=== PATIENT | female | born 1970 ===

== ENCOUNTER 2017-06-17 09:48 | Day surgery (SDC) | payer BC ==
[2016-06-24 06:56] VITALS: BMI 26.5
--- NOTE | 2017-07-29 08:55 | PROCN ---
DATE: 06/17/2017 TILT-TABLE TEST REPORT INDICATION: Recurrent syncope. DESCRIPTION OF PROCEDURE: The patient was put on the table and tilted at 30 degrees for 5 minutes and 60 degrees for 15 minutes. Blood pressure and heart rate response were monitored every 3 minutes. The patient tolerated the procedure well. No symptoms were reported during the test. IMPRESSION: Appropriate response of blood pressure and heart rate during the tilt-table test. The patient was asymptomatic throughout the test. Abimael Graves MD
== END 2017-06-17 13:40 | disposition home or self-care (01) ==
LOC: C.CATHLAB 09:48
PROVIDERS: ATTEND Internal Medicine
DX: R55 Syncope and collapse (principal); R07.9 Chest pain, unspecified; I10 Essential (primary) hypertension

== ENCOUNTER 2017-06-21 09:15 | Observation (INO) | payer BC ==
[2017-06-21 09:15] VITALS: BMI 26.5
[2017-06-21] MEDS: Sodium Chloride 0.9% 1,000 ML IV ONE ×2 (09:30→09:53)
--- NOTE | 2017-06-21 10:01 | RAD ---
Chest x-ray single frontal view History: Chest pain. Comparison: None available. Findings: No focal infiltrate or effusion. Heart size within normal limits. Impression: No focal infiltrate or effusion.
[2017-06-21 10:03] LABS: BASO # 0.1 K/uL (0.0-0.2); BASO % 0.8 % (0.0-2.0); EOS # 0.3 K/uL (0.0-0.7); EOS % 4.3 % (0.0-4.0); HEMOGLOBIN 13.1 g/dL (11.0-16.0); LYMPH # 1.3 K/uL (1.0-4.3); LYMPH % 19.3 % (20.0-40.0); MEAN CORPUSCULAR HEMOGLOBIN 30.1 pg (27.0-31.0); MEAN PLATELET VOLUME 10.2 fL (7.2-11.7); MONO # 0.3 K/uL (0.0-0.8); MONO % 4.8 % (0.0-10.0); NEUT # 4.8 K/uL (1.8-7.0); NEUT % 70.8 % (50.0-75.0); RBC 4.34 Mil/uL (3.80-5.20); RED CELL DISTRIBUTION WIDTH 13.5 % (11.5-14.5); WHITE BLOOD COUNT 6.8 K/uL (4.8-10.8)
--- NOTE | 2017-06-21 10:07 | C.PDOC ---
History Of Present Illness 46 year old female, with PMHx of HTN, presents to ED for evaluation of syncopal episode. Pt had syncopal episode when IV was being inserted for stress test, BP was found to be low, 250 NS Bolus was given. Rapid response was called, pt was brought to ER for evaluation. Pt is awake, alert, oriented x3 in ER, and is asymptomatic. Denies chest pain, shortness of breath, nausea, or vomiting. Time Seen by Provider: 06/21/17 09:20 Chief Complaint (Nursing): Syncope History Per: Patient History/Exam Limitations: no limitations Onset/Duration Of Symptoms: Days Current Symptoms Are (Timing): Still Present Recent travel outside of the [place]: No Additional History Per: Patient Past Medical History Reviewed: Historical Data, Nursing Documentation, Vital Signs Vital Signs: Last Vital Signs Temp 97.8 F 06/21/17 09:25 Pulse 66 06/21/17 10:50 Resp 16 06/21/17 10:50 BP 145/84 06/21/17 10:50 Pulse Ox 100 06/21/17 11:12 - Medical History PMH: Cardia Arrhythmia (irregular heart beat), HTN, Migraine Denies: Depression - [facility] Procedures IMMOBILIZ/WOUND ATTN NEC (05/06/14) INJECT/INFUSE NEC (05/05/12) Family History: States: [place] (father at age of 65 ), CAD - Social History Hx Tobacco Use: No Hx Alcohol Use: No Hx Substance Use: No - Immunization History Hx Influenza Vaccination: No Review Of Systems Except As Marked, All Systems Reviewed And Found Negative. Constitutional: Negative for: Fever, Chills Cardiovascular: Negative for: Chest Pain, Palpitations Respiratory: Negative for: Cough, Shortness of Breath Gastrointestinal: Negative for: Nausea, Vomiting, Abdominal Pain Neurological: Positive for: Other (syncope). Negative for: Headache, Dizziness Physical Exam - Physical Exam Appears: Non-toxic, No Acute Distress Skin: Normal Color, Warm, Dry Head: Atraumatic, Normacephalic Eye(s): bilateral: Normal Inspection Oral Mucosa: Moist Neck: Supple Cardiovascular: Rhythm Regular, No Murmur Respiratory: Normal Breath Sounds, No Rales, No Rhonchi, No Wheezing Gastrointestinal/Abdominal: Soft, No Tenderness Extremity: Normal ROM, No Pedal Edema, No Deformity Neurological/Psych: Oriented x3, Normal Speech ED Course And Treatment - Laboratory Results Result Diagrams: 06/21/17 09:49 06/21/17 09:49 ECG: Interpreted By Me, Viewed By Me ECG Rhythm: Sinus Rhythm ECG Interpretation: No Acute Changes Interpretation Of ECG: Normal axis, normal intervals. No acute ST/T wave changes. Rate From EC (bpm) O2 Sat by Pulse Oximetry: 100 (RA) Pulse Ox Interpretation: Normal Medical Decision Making Medical Decision Making: Blood work, EKG, CXR ordered and reviewed. Assessment: syncope Spoke with Dr. Graves who will admit pe to tele obs for syncope. Disposition Discussed With : Abimael Graves Doctor Will See Patient In The: ED Counseled Patient/Family Regarding: Studies Performed, Diagnosis - Disposition Disposition: HOSPITALIZED Disposition Time: 11:12 Condition: FAIR Forms: [facility] (Welsh) - Clinical Impression Clinical Impression: Syncope - Scribe Statement The provider has reviewed the documentation as recorded by the Scribe Shelly Helms All medical record entries made by the Scribe were at my direction and personally dictated by me. I have reviewed the chart and agree that the record accurately reflects my personal performance of the history, physical exam, medical decision making, and the department course for this patient. I have also personally directed, reviewed, and agree with the discharge instructions and disposition.
[2017-06-21 10:15] LABS: ALB/GLOB RATIO 1.2 (1.0-2.1); CALCIUM 8.3 mg/dl (8.6-10.4); GFR AFRICAN-AMERICAN > 60; GFR NON-AFRICAN AMERICAN > 60
[2017-06-21 10:37] LABS: ALT/SGPT 15 U/L (9-52); AST/SGOT 23 U/L (14-36); BLOOD UREA NITROGEN 14 mg/dL (7-17)
[2017-06-21 12:53] LABS: HDL CHOLESTEROL 49 mg/dL (30-70)
[2017-06-21 13:04] LABS: LDL CHOLESTEROL 113 mg/dL (0-129)
--- NOTE | 2017-06-21 15:54 | CP.PCM.CON ---
History of Present Illness - History of Present Illness History of Present Illness: Mrs. Reynoso is a 46-year-old woman with a past medical history of hypertension and has been having palpitations with occasional chest pain. Yesterday, she was being prepped for a cath and an IV line was being inserted, when she suddenly lost consciousness. This has happened several times in the past. Since June 08, the patient has been having headaches that are described as one sided, over the left side of the head, around the eye, pressure like, severe , come on suddenly, several times throughout the day, and associated with nausea. She was given Fioricet and Imitrex, but these did not help. Review of Systems - Review of Systems All systems: reviewed and no additional remarkable complaints except Past Patient History - Infectious Disease Hx of Infectious Diseases: None - Tetanus Immunizations Tetanus Immunization: Up to Date - Past Social History Smoking Status: Never Smoked - CARDIAC Hx Cardia Arrhythmia: Yes (irregular heart beat) Hx Hypertension: Yes - NEUROLOGICAL Hx Migraine: Yes - MUSCULOSKELETAL/RHEUMATOLOGICAL Hx Falls: No - PSYCHIATRIC Hx Depression: No Hx Substance Use: No - SURGICAL HISTORY Hx Surgeries: Yes Hx Section: Yes (x2) Other/Comment: rotator cuff surgery - ANESTHESIA Hx Anesthesia: Yes Hx Anesthesia Reactions: No Hx Malignant Hyperthermia: No Meds Allergies/Adverse Reactions: Allergies Allergy/AdvReac Type Severity Reaction Status Date / Time No Known Allergies Allergy Verified 06/21/17 09:23 Physical Exam - Constitutional Appears: Well - Head Exam Head Exam: ATRAUMATIC, NORMAL INSPECTION, NORMOCEPHALIC - Eye Exam Eye Exam: EOMI, Normal appearance, PERRL - ENT Exam ENT Exam: Mucous Membranes Moist, Normal Exam - Neck Exam Neck exam: Positive for: Normal Inspection - Cardiovascular Exam Cardiovascular Exam: REGULAR RHYTHM, +S1, +S2 - GI/Abdominal Exam GI & Abdominal Exam: Normal Bowel Sounds, Soft. absent: Tenderness - Rectal Exam Rectal Exam: Deferred - Extremities Exam Extremities exam: Positive for: normal inspection - Neurological Exam Neurological exam: Alert, CN II-XII Intact, Normal Gait, Oriented x3, Reflexes Normal - Psychiatric Exam Psychiatric exam: Normal Affect, Normal Mood - Skin Skin Exam: Dry, Intact, Normal Color, Warm Results - Vital Signs Recent Vital Signs: Last Vital Signs Temp 98.2 F 06/21/17 14:46 Pulse 71 06/21/17 14:46 Resp 19 06/21/17 14:46 BP 137/92 H 06/21/17 14:46 Pulse Ox 97 06/21/17 14:46 - Labs Result Diagrams: 06/21/17 09:49 06/21/17 09:49 Labs: Laboratory Results - last 24 hr 06/21/17 06/21/17 06/21/17 09:30 09:49 09:49 WBC 6.8 RBC 4.34 Hgb 13.1 Hct 37.3 MCV 86.0 MCH 30.1 MCHC 35.0 RDW 13.5 Plt Count 192 MPV 10.2 Neut % (Auto) 70.8 Lymph % (Auto) 19.3 L [place] % (Auto) 4.8 Eos % (Auto) 4.3 H Baso % (Auto) 0.8 Neut # 4.8 Lymph # 1.3 [place] # 0.3 Eos # 0.3 Baso # 0.1 Sodium 133 Potassium 4.6 Chloride 101 Carbon Dioxide 23 Anion Gap 14 BUN 14 Creatinine 0.7 Est GFR ( Amer) > 60 Est GFR (Non-Af Amer) > 60 POC Glucose (mg/dL) 95 Random Glucose 97 Hemoglobin A1c Calcium 8.3 L Total Bilirubin 0.8 AST 23 ALT 15 Alkaline Phosphatase 56 Troponin I < 0.0120 Total Protein 7.4 Albumin 4.0 Globulin 3.4 Albumin/Globulin Ratio 1.2 Triglycerides Cholesterol LDL Cholesterol Direct HDL Cholesterol Vitamin B12 25-OH Vitamin D Total Urine HCG, Qual 06/21/17 06/21/17 06/21/17 11:47 11:58 12:36 WBC RBC Hgb Hct MCV MCH MCHC RDW Plt Count MPV Neut % (Auto) Lymph % (Auto) [place] % (Auto) Eos % (Auto) Baso % (Auto) Neut # Lymph # [place] # Eos # Baso # Sodium Potassium Chloride Carbon Dioxide Anion Gap BUN Creatinine Est GFR ( Amer) Est GFR (Non-Af Amer) POC Glucose (mg/dL) Random Glucose Hemoglobin A1c 5.6 Calcium Total Bilirubin AST ALT Alkaline Phosphatase Troponin I Total Protein Albumin Globulin Albumin/Globulin Ratio Triglycerides 108 Cholesterol 199 LDL Cholesterol Direct 113 HDL Cholesterol 49 Vitamin B12 406 25-OH Vitamin D Total Urine HCG, Qual Negative 06/21/17 12:36 WBC RBC Hgb Hct MCV MCH MCHC RDW Plt Count MPV Neut % (Auto) Lymph % (Auto) [place] % (Auto) Eos % (Auto) Baso % (Auto) Neut # Lymph # [place] # Eos # Baso # Sodium Potassium Chloride Carbon Dioxide Anion Gap BUN Creatinine Est GFR ( Amer) Est GFR (Non-Af Amer) POC Glucose (mg/dL) Random Glucose Hemoglobin A1c Calcium Total Bilirubin AST ALT Alkaline Phosphatase Troponin I Total Protein Albumin Globulin Albumin/Globulin Ratio Triglycerides Cholesterol LDL Cholesterol Direct HDL Cholesterol Vitamin B12 25-OH Vitamin D Total 23.8 L Urine HCG, Qual Assessment & Plan (1) Paroxysmal hemicrania Assessment and Plan: Will start Indomethacin 25 mg BID to treat the headache, and follow up with me in the outpatient neurology clinic in two weeks. Status: Acute Priority: High (2) Syncope Assessment and Plan: Likely vaso-vagal syncope. Will obtain CTA of the head/neck to rule out VBI. Status: Acute
--- NOTE | 2017-06-21 16:10 | CARD ---
APPROVED REPORT EXAM: Two-dimensional and M-mode echocardiogram with Doppler and color Doppler. INDICATION Syncope RISK FACTORS Hypertension 2D DIMENSIONS IVSd0.8 (0.7-1.1cm)LVDd4.4 (3.9-5.9cm) PWd0.9 (0.7-1.1cm)LVDs2.8 (2.5-4.0cm) FS (%) 37.7 %LVEF (%)68.0 (>50%) M-Mode DIMENSIONS Left Atrium (MM)3.34 (2.5-4.0cm)Aortic Root3.43 (2.2-3.7cm) Aortic Cusp Exc.2.26 (1.5-2.0cm) Mitral Valve MV E Uiuwmhpz67.3cm/sMV A Kpusvryc14.7cm/sE/A ratio1.0 TDI E/Lateral E'0.0E/Medial E'0.0 Tricuspid Valve TR Peak Zygcjzdp714hh/sTR Peak [id number] LEFT VENTRICLE The left ventricle is normal size. There is normal left ventricular wall thickness. The left ventricular function is normal. The left ventricular ejection fraction is within the normal range. There is normal LV segmental wall motion. The left ventricular diastolic function is normal. RIGHT VENTRICLE The right ventricle is normal size. The right ventricular systolic function is normal. ATRIA The left atrium size is normal. The right atrium size is normal. The interatrial septum is intact with no evidence for an atrial septal defect. AORTIC VALVE The aortic valve is normal in structure. No aortic regurgitation is present. MITRAL VALVE The mitral valve is normal in structure. Mitral regurgitation is trace. TRICUSPID VALVE The tricuspid valve is normal in structure. There is trace to mild tricuspid regurgitation. Right ventricular systolic pressure is estimated at less than 30 mmHg. PULMONIC VALVE The pulmonary valve is normal in structure. GREAT VESSELS The aortic root is normal in size. The IVC is normal in size and collapses >50% with inspiration. PERICARDIAL EFFUSION There is no pericardial effusion. <Conclusion> Normal bi-ventricular function. Insignificant trace of mitral regurgitation. No pericardial effusion.
[2017-06-21] MEDS ORDERED: Iodixanol 320 MG/ML 100 ML BOTTLE IV ONE (17:13)
--- NOTE | 2017-06-21 20:26 | CT ---
EXAM: CT Angiography Head With Intravenous Contrast CLINICAL HISTORY: 46 years old, female; Pain; Headache; Additional info: Syncope TECHNIQUE: Axial computed tomographic angiography images of the head with intravenous contrast using CT angiography protocol. All CT scans at this facility use one or more dose reduction techniques, viz.: automated exposure control; ma/kV adjustment per patient size (including targeted exams where dose is matched to indication; i.e. head); or iterative reconstruction technique. MIP reconstructed images were created and reviewed. Coronal and sagittal reformatted images were created and reviewed. CONTRAST: 100 mL of visipaque 320 administered intravenously. COMPARISON: No relevant prior studies available. FINDINGS: Right internal carotid artery: No acute findings. Intracranial segment is patent with no significant stenosis. No aneurysm. Right anterior cerebral artery: Unremarkable. No occlusion or significant stenosis. No aneurysm. Right middle cerebral artery: Unremarkable. No occlusion or significant stenosis. No aneurysm. Right posterior cerebral artery: Unremarkable. No occlusion or significant stenosis. No aneurysm. Right vertebral artery: Unremarkable as visualized. Left internal carotid artery: No acute findings. Intracranial segment is patent with no significant stenosis. No aneurysm. Left anterior cerebral artery: Unremarkable. No occlusion or significant stenosis. No aneurysm. Left middle cerebral artery: Unremarkable. No occlusion or significant stenosis. No aneurysm. Left posterior cerebral artery: Unremarkable. No occlusion or significant stenosis. No aneurysm. Left vertebral artery: Unremarkable as visualized. Basilar artery: Unremarkable. No occlusion or significant stenosis. No aneurysm. IMPRESSION: Normal head CTA. EXAM: CT Angiography Neck With Intravenous Contrast EXAM DATE/TIME: Exam ordered 06/21/2017 11:44 AM CLINICAL HISTORY: 46 years old, female; Pain; Headache; Additional info: Syncope TECHNIQUE: Axial computed tomographic angiography images of the neck with intravenous contrast using CT angiography protocol. All CT scans at this facility use one or more dose reduction techniques, viz.: automated exposure control; ma/kV adjustment per patient size (including targeted exams where dose is matched to indication; i.e. head); or iterative reconstruction technique. MIP reconstructed images were created and reviewed. Coronal and sagittal reformatted images were created and reviewed. CONTRAST: 100 mL of visipaque 320 administered intravenously. COMPARISON: No relevant prior studies available. FINDINGS: VASCULATURE: Right common carotid artery: Unremarkable. No significant stenosis. No dissection or occlusion. Right internal carotid artery: Unremarkable. Extracranial segment is patent with no significant stenosis. No dissection or occlusion. Right external carotid artery: Unremarkable. No occlusion. Right vertebral artery: Unremarkable. No significant stenosis. No dissection or occlusion. Left common carotid artery: Unremarkable. No significant stenosis. No dissection or occlusion. Left internal carotid artery: Unremarkable. Extracranial segment is patent with no significant stenosis. No dissection or occlusion. Left external carotid artery: Unremarkable. No occlusion. Left vertebral artery: Unremarkable. No significant stenosis. No dissection or occlusion. NECK: Bones/joints: No acute fracture. No dislocation. Soft tissues: Unremarkable as visualized. No mass. CAROTID STENOSIS REFERENCE USING NASCET CRITERIA: % ICA stenosis = (1 - narrowest ICA diameter/diameter of distal cervical ICA) x 100. Mild - <50% stenosis. Moderate - 50-69% stenosis. Severe - 70-94% stenosis. Near occlusion - 95-99% stenosis. Occluded - 100% stenosis. IMPRESSION: Normal neck CTA.
--- NOTE | 2017-06-22 06:31 | CP.PCM.CON ---
History of Present Illness - History of Present Illness History of Present Illness: Patient was seen in the ER(06/21/2017) Reason for referral: recurrent syncope; palpitations CC: recurrent syncope chest pain HPI: Mrs. Reynoso is a 46-year-old woman with a past medical history of hypertension and has been having palpitations with occasional chest pain. Yesterday, she was being prepped for a cath and an IV line was being inserted, when she suddenly lost consciousness. This has happened several times in the past. Since June 08, the patient has been having headaches that are described as one sided, over the left side of the head, around the eye, pressure like, severe, come on suddenly, several times throughout the day, and associated with nausea. She was given Fioricet and Imitrex, but these did not help. EKG - NSR TILT Table Test (06/18/2017) - Normal response to tilt table test Review of Systems - Constitutional Constitutional: absent: Frequent Falls, Weight Loss - EENT Ears: Dizziness. absent: Ear Pain, Tinnitus Nose/Mouth/Throat: absent: Nasal Congestion, Dysphagia - Cardiovascular Cardiovascular: Chest Pain, Palpitations - Respiratory Respiratory: Dyspnea - Gastrointestinal Gastrointestinal: absent: Abdominal Pain, Diarrhea, Dysphagia - Musculoskeletal Musculoskeletal: absent: Myalgias, Numbness - Neurological Neurological: Syncope, Vertigo. absent: Convulsions, Disequilibrium, Focal Weakness, Tingling Past Patient History - Infectious Disease Hx of Infectious Diseases: None - Tetanus Immunizations Tetanus Immunization: Up to Date - Past Social History Smoking Status: Never Smoked - CARDIAC Hx Cardia Arrhythmia: Yes (irregular heart beat) Hx Hypertension: Yes - NEUROLOGICAL Hx Migraine: Yes - MUSCULOSKELETAL/RHEUMATOLOGICAL Hx Falls: No - PSYCHIATRIC Hx Depression: No Hx Substance Use: No - SURGICAL HISTORY Hx Surgeries: Yes Hx Section: Yes (x2) Other/Comment: rotator cuff surgery - ANESTHESIA Hx Anesthesia: Yes Hx Anesthesia Reactions: No Hx Malignant Hyperthermia: No Meds Allergies/Adverse Reactions: Allergies Allergy/AdvReac Type Severity Reaction Status Date / Time No Known Allergies Allergy Verified 06/21/17 09:23 - Medications Medications: Current Medications Indomethacin (Indocin) 25 mg PO BID [facility] Last Admin: 06/21/17 17:54 Dose: Not Given Lisinopril (Zestril) 10 mg PO DAILY [facility] Physical Exam - Head Exam Head Exam: NORMAL INSPECTION - Eye Exam Eye Exam: absent: Scleral icterus - ENT Exam ENT Exam: Mucous Membranes Moist - Neck Exam Neck exam: Positive for: Full Rom. Negative for: Lymphadenopathy - Respiratory Exam Respiratory Exam: NORMAL BREATHING PATTERN - Cardiovascular Exam Cardiovascular Exam: REGULAR RHYTHM - GI/Abdominal Exam GI & Abdominal Exam: Soft. absent: Tenderness - Extremities Exam Extremities exam: Positive for: calf tenderness. Negative for: pedal edema - Neurological Exam Neurological exam: Alert, CN II-XII Intact, Oriented x3 Results - Vital Signs Recent Vital Signs: Last Vital Signs Temp 98 F 06/21/17 23:32 Pulse 74 06/21/17 23:40 Resp 20 06/21/17 23:32 BP 112/73 06/21/17 23:32 Pulse Ox 97 06/21/17 23:32 - Labs Result Diagrams: 06/21/17 09:49 06/21/17 09:49 Labs: Laboratory Results - last 24 hr 06/21/17 06/21/17 06/21/17 09:30 09:49 09:49 WBC 6.8 RBC 4.34 Hgb 13.1 Hct 37.3 MCV 86.0 MCH 30.1 MCHC 35.0 RDW 13.5 Plt Count 192 MPV 10.2 Neut % (Auto) 70.8 Lymph % (Auto) 19.3 L [place] % (Auto) 4.8 Eos % (Auto) 4.3 H Baso % (Auto) 0.8 Neut # 4.8 Lymph # 1.3 [place] # 0.3 Eos # 0.3 Baso # 0.1 Sodium 133 Potassium 4.6 Chloride 101 Carbon Dioxide 23 Anion Gap 14 BUN 14 Creatinine 0.7 Est GFR ( Amer) > 60 Est GFR (Non-Af Amer) > 60 POC Glucose (mg/dL) 95 Random Glucose 97 Hemoglobin A1c Calcium 8.3 L Total Bilirubin 0.8 AST 23 ALT 15 Alkaline Phosphatase 56 Troponin I < 0.0120 Total Protein 7.4 Albumin 4.0 Globulin 3.4 Albumin/Globulin Ratio 1.2 Triglycerides Cholesterol LDL Cholesterol Direct HDL Cholesterol Vitamin B12 25-OH Vitamin D Total Urine HCG, Qual 06/21/17 06/21/17 06/21/17 11:47 11:58 12:36 WBC RBC Hgb Hct MCV MCH MCHC RDW Plt Count MPV Neut % (Auto) Lymph % (Auto) [place] % (Auto) Eos % (Auto) Baso % (Auto) Neut # Lymph # [place] # Eos # Baso # Sodium Potassium Chloride Carbon Dioxide Anion Gap BUN Creatinine Est GFR ( Amer) Est GFR (Non-Af Amer) POC Glucose (mg/dL) Random Glucose Hemoglobin A1c 5.6 Calcium Total Bilirubin AST ALT Alkaline Phosphatase Troponin I Total Protein Albumin Globulin Albumin/Globulin Ratio Triglycerides 108 Cholesterol 199 LDL Cholesterol Direct 113 HDL Cholesterol 49 Vitamin B12 406 25-OH Vitamin D Total Urine HCG, Qual Negative 06/21/17 12:36 WBC RBC Hgb Hct MCV MCH MCHC RDW Plt Count MPV Neut % (Auto) Lymph % (Auto) [place] % (Auto) Eos % (Auto) Baso % (Auto) Neut # Lymph # [place] # Eos # Baso # Sodium Potassium Chloride Carbon Dioxide Anion Gap BUN Creatinine Est GFR ( Amer) Est GFR (Non-Af Amer) POC Glucose (mg/dL) Random Glucose Hemoglobin A1c Calcium Total Bilirubin AST ALT Alkaline Phosphatase Troponin I Total Protein Albumin Globulin Albumin/Globulin Ratio Triglycerides Cholesterol LDL Cholesterol Direct HDL Cholesterol Vitamin B12 25-OH Vitamin D Total 23.8 L Urine HCG, Qual Assessment & Plan - Assessment and Plan (Free Text) Assessment: Recurrent syncope Chest pain w/ palpitations Migraine Plan: Neuro work up Lexiscan ECHO Consider loop implant - Date & Time Date: 06/21/17 Time: 10:40
[2017-06-22] MEDS ORDERED: Aminophylline 25 mg/ml Inj ONE (07:41)
[2017-06-22] MEDS: Enoxaparin 40 mg Syringe SC SCH (09:54)
--- NOTE | 2017-06-22 10:34 | CP.PCM.HP ---
History of Present Illness - History of Present Illness History of Present Illness: 46-year-old woman with a past medical history of hypertension and has been having palpitations with occasional chest pain. Yesterday, she was being prepped for a cath and an IV line was being inserted, when she suddenly lost consciousness. Present on Admission - Present on Admission Any Indicators Present on Admission: No History of DVT/PE: No History of Uncontrolled Diabetes: No Urinary Catheter: No Decubitus Ulcer Present: No History Surgical Site Infection Following: None Review of Systems - Constitutional Constitutional: As Per HPI - EENT Eyes: absent: As Per HPI, Blind Spots, Blurred Vision, Change in Vision, Decreased Night Vision, Diplopia, Discharge, Dry Eye, Exophthalmos, Floaters, Irritation, Itchy Eyes, Loss of Peripheral Vision, Pain, Photophobia, Requires Corrective Lenses, Sees Flashes, Spots in Vision, Tunnel Vision, Other Visual Disturbances, Loss of Vision, Other Ears: absent: As Per HPI, Decreased Hearing, Ear Discharge, Ear Pain, Tinnitus, Abnormal Hearing, Disequilibrium, Dizziness, Other Nose/Mouth/Throat: absent: As Per HPI, Epistaxis, Nasal Congestion, Nasal Discharge, Nasal Obstruction, Nasal Trauma, Nose Pain, Post Nasal Drip, Sinus Pain, Sinus Pressure, Bleeding Gums, Change in Voice, Dental Pain, Dry Mouth, Dysphagia, Halitosis, Hoarsness, Lip Swelling, Mouth Lesions, Mouth Pain, Odynophagia, Sore Throat, Throat Swelling, Tongue Swelling, Facial Pain, Neck Pain, Neck Mass, Other - Breasts Breasts: absent: As Per HPI, Change in Shape, Mass, Pain, Nipple Discharge, Nipple Inversion, Skin Changes, Swelling, Other - Cardiovascular Cardiovascular: As Per HPI - Gastrointestinal Gastrointestinal: absent: As Per HPI, Abdominal Pain, Belching, Bloating, Change in Bowel Habits, Change in Stool Character, Coffee Ground Emesis, Constipation, Cramping, Diarrhea, Dyspepsia, Dysphagia, Early Satiety, Excessive Flatus, Fecal Incontinence, Heartburn, Hematemesis, Hematochezia, Loose Stools, Melena, Nausea, Odynophagia, Temesmus, Vomiting, Other - Genitourinary Genitourinary: absent: As Per HPI, Change in Urinary Stream, Difficulty Urinating, Dysuria, Flank Pain, Hematuria, Pyuria, Nocturia, Urinary Incontinence, Urinary Frequency, Urinary Hesitance, Urinary Urgency, Voiding Freq/Small Amts, Freq UTI, Hx Renal/Bladder Calculi, Hx /Renal Surgery, Bladder Distension, Other - Reproductive: Female Reproductive:Female: absent: As Per HPI, Amenorrhea, Amenorrhea/ Control, Currently Menstual, Cycle <21 Days, Cycle >35 Days, Cycle Variable, Menses 1-7 Days, Menses >/= 8 Days, Menses Variable, Cycle > 4 Weeks Between, No Menses for 6 Months, Heavy Menses, Light Menses, Normal Menses, Spotting Between Cycles , S/P Hysterectomy, Menopausal, Post Menopausal, Premenarche, Abnormal Vaginal Bleeding, Dysmenorrhea, Dyspareunia, Genital Lesions, Genital Pruritis, Pelvic Pain, Prolapse Symptoms, Sexual Dysfunction, Vaginal Discharge, Vaginal Dryness , Vaginal Odor, Vaginal Pruritis, Other - Menstruation Menstruation: absent: As Per HPI, Amenorrhea, Amenorrhea/ Control, Currently Menstual, Cycle <21 Days, Cycle >35 Days, Cycle Variable, Menses 1-7 Days, Menses >/= 8 Days, Menses Variable, Cycle > 4 Weeks Between, No Menses for 6 Months, Heavy Menses, Light Menses, Normal Menses, Spotting Between Cycles , S/P Hysterectomy, Menopausal, Post Menopausal, Premenarche, Abnormal Vaginal Bleeding, Dysmenorrhea, Other - Musculoskeletal Musculoskeletal: absent: As Per HPI, Abnormal Gait, Arthralgias, Atrophy, Back Pain, Deformity, Joint Swelling, Limited Range of Motion, Loss of Height, Muscle Cramps, Muscle Weakness, Myalgias, Neck Pain, Numbness, Radiating Pain into Limb, Stiffness, Tingling, Other - Integumentary Integumentary: absent: As Per HPI, Acne, Alopecia, Bleeding Lesions, Change in Hair, Change in Nails, Change in Pigmentation, Changing Lesions, Dry Skin, Erythema, Furuncle, Hirsutism, Lesions, New Lesions, Non-Healing Lesions, Photosensitivity, Pruritus, Rash, Skin Pain, Skin Ulcer, Sores, Striae, Swelling , Unusual Bruising, Wounds, Jaundice, Other - Neurological Neurological: As Per HPI - Psychiatric Psychiatric: absent: As Per HPI, Abnormal Sleep Pattern, Anhedonia, Anxiety, Auditory Hallucinations, Behavioral Changes, Change in Appetite, Change in Libido, Confusion, Depression, Difficulty Concentrating, Hallucinations, Homicidal Ideation, Hopelessness, Irritability, Memory Loss, Mood Swings, Panic Attacks, Paranoia, Suicidal Ideation, Visual Hallucinations, Tactile Hallucinations, Other - Endocrine Endocrine: absent: As Per HPI, Change in Body Appearance, Change in Libido, Cold Intolorance, Deepening of Voice, Excessive Sweating, Fatigue, Flushing, Heat Intolorance, Increase in Ring/Shoe/Hat Size, Palpitations, Polydipsia, Polyphagia, Polyuria, Other - Hematologic/Lymphatic Hematologic: absent: As Per HPI, Easy Bleeding, Easy Bruising, Lymphadenopathy, Other Past Patient History - Infectious Disease Hx of Infectious Diseases: None - Tetanus Immunizations Tetanus Immunization: Up to Date - Past Social History Smoking Status: Never Smoked - CARDIAC Hx Cardia Arrhythmia: Yes (irregular heart beat) Hx Hypertension: Yes - NEUROLOGICAL Hx Migraine: Yes - MUSCULOSKELETAL/RHEUMATOLOGICAL Hx Falls: No - PSYCHIATRIC Hx Depression: No Hx Substance Use: No - SURGICAL HISTORY Hx Surgeries: Yes Hx Section: Yes (x2) Other/Comment: rotator cuff surgery - ANESTHESIA Hx Anesthesia: Yes Hx Anesthesia Reactions: No Hx Malignant Hyperthermia: No Meds Allergies/Adverse Reactions: Allergies Allergy/AdvReac Type Severity Reaction Status Date / Time No Known Allergies Allergy Verified 06/21/17 09:23 Physical Exam - Constitutional Appears: Non-toxic, Chronically Ill - Head Exam Head Exam: NORMOCEPHALIC - Eye Exam Eye Exam: PERRL - ENT Exam ENT Exam: Mucous Membranes Dry - Neck Exam Neck exam: Negative for: Lymphadenopathy - Respiratory Exam Respiratory Exam: Decreased Breath Sounds - Cardiovascular Exam Cardiovascular Exam: REGULAR RHYTHM - GI/Abdominal Exam GI & Abdominal Exam: Diminished Bowel Sounds, Soft. absent: Tenderness - Rectal Exam Rectal Exam: Deferred - Exam Exam: NORMAL INSPECTION - Extremities Exam Extremities exam: Negative for: pedal edema - Back Exam Back exam: absent: CVA tenderness (L), CVA tenderness (R) - Neurological Exam Neurological exam: Alert, CN II-XII Intact, Oriented x3, Reflexes Normal - Psychiatric Exam Psychiatric exam: Normal Mood - Skin Skin Exam: Dry Results - Vital Signs Recent Vital Signs: Last Vital Signs Temp 97.8 F 06/22/17 09:28 Pulse 76 06/22/17 09:53 Resp 20 06/22/17 09:28 BP 145/92 H 06/22/17 09:53 Pulse Ox 98 06/22/17 09:28 - Labs Result Diagrams: 06/21/17 09:49 06/21/17 09:49 Labs: Laboratory Results - last 24 hr 06/21/17 06/21/17 06/21/17 09:49 11:47 11:58 Sodium 133 Potassium 4.6 Chloride 101 Carbon Dioxide 23 Anion Gap 14 BUN 14 Hemoglobin A1c 5.6 AST 23 ALT 15 Alkaline Phosphatase 56 Triglycerides Cholesterol LDL Cholesterol Direct HDL Cholesterol Vitamin B12 25-OH Vitamin D Total Urine HCG, Qual Negative 06/21/17 06/21/17 12:36 12:36 Sodium Potassium Chloride Carbon Dioxide Anion Gap BUN Hemoglobin A1c AST ALT Alkaline Phosphatase Triglycerides 108 Cholesterol 199 LDL Cholesterol Direct 113 HDL Cholesterol 49 Vitamin B12 406 25-OH Vitamin D Total 23.8 L Urine HCG, Qual Assessment & Plan (1) Paroxysmal hemicrania Status: Acute Priority: High (2) Syncope Status: Acute Decision To Admit - Admit Certification Admit to Inpatient:: admit for evaluation and treatment of potential life threatening illness - InPatient: Physician Admission Certification:: patient requires in patient evaluation and treatment - . Bed Request Type: Telemetry
[2017-06-22 12:39] LABS: BASO # 0.1 K/uL (0.0-0.2); BASO % 0.9 % (0.0-2.0); EOS # 0.3 K/uL (0.0-0.7); EOS % 3.2 % (0.0-4.0); HEMOGLOBIN 13.3 g/dL (11.0-16.0); LYMPH # 2.1 K/uL (1.0-4.3); LYMPH % 21.5 % (20.0-40.0); MEAN CELL VOLUME 86.2 fL (81.0-99.0); MEAN CORPUSCULAR HEMOGLOBIN 28.9 pg (27.0-31.0); MEAN CORPUSCULAR HGB CONC 33.5 g/dL (33.0-37.0); MEAN PLATELET VOLUME 10.8 fL (7.2-11.7); MONO # 0.5 K/uL (0.0-0.8); MONO % 5.6 % (0.0-10.0); NEUT # 6.8 K/uL (1.8-7.0); NEUT % 68.8 % (50.0-75.0); NRBC % 0.1 % (0.0-2.0); RBC 4.6 Mil/uL (3.80-5.20); RED CELL DISTRIBUTION WIDTH 13.5 % (11.5-14.5); WHITE BLOOD COUNT 9.8 K/uL (4.8-10.8)
[2017-06-22 13:20] LABS: ALB/GLOB RATIO 1.2 (1.0-2.1); ALT/SGPT 17 U/L (9-52); AST/SGOT 17 U/L (14-36); BLOOD UREA NITROGEN 14 mg/dL (7-17); CALCIUM 8.6 mg/dl (8.6-10.4); GFR AFRICAN-AMERICAN > 60; GFR NON-AFRICAN AMERICAN > 60; MAGNESIUM 1.8 mg/dL (1.6-2.3)
[2017-06-22 20:11] LABS: CK-MB < 0.22 ng/mL (0.0-3.38)
[2017-06-22 20:41] LABS: ALB/GLOB RATIO 1.2 (1.0-2.1); ALBUMIN 3.8 g/dL (3.5-5.0); ALT/SGPT 16 U/L (9-52); AST/SGOT 39 U/L (14-36); BLOOD UREA NITROGEN 14 mg/dL (7-17); CALCIUM 8.1 mg/dl (8.6-10.4); GFR AFRICAN-AMERICAN > 60; GFR NON-AFRICAN AMERICAN > 60
[2017-06-22] MEDS ORDERED: Potassium Chloride 10 mEq ER Tab PO STA (21:40)
--- NOTE | 2017-06-23 00:10 | CARD ---
APPROVED REPORT EKG Measurement Heart [id number] [id number] <Conclusion> Normal sinus rhythm Normal ECG
--- NOTE | 2017-06-23 06:17 | CARD ---
APPROVED REPORT Protocol: LEXISCAN Test Type: LEXISCAN STRESS Test Indications: CP DIZZINESS HTN Target HR: 174 bpm Resting ECG: normal Resting Heart Rate: 69 bpm Resting Blood Pressure: 140/80mmHg submaximum (85%): 148 bpm TEST SUMMARY PREINFSNHYPERV.01:[id number]/80.0. INFUSIONDOSE 100:300.00.01.067/.0. [id number]/80.0. PROCEDURE Pharmacologic stress testing was performed using 0.4mg per 5ml of regadenoson given intravenously over 7-10 seconds. Reversal agent aminophyline 125 mg, given intravenously for Headache. There SYNCOPE low-level exercise performed along with the infusion POST EXERCISE Reason for Termination: Protocol Completed Target HR: No Max HR: 67 bpm 57% of Maximum Predicted HR: 174 bpm Exercise duration: 00:30 min:sec, 0 Stage Exercise capacity: 1.0METs Max Blood Pressure: 140/80mmHg Blood Pressure response to exercise: normal resting BP - appropriate response Heart Rate response to exercise: appropriate Chest Pain: No, none Angina index: 0 Arrhythmia: No, none ST Change: No, none Deviation: 0 mm INTERPRETATION Stress EKG Conclusion: NEGATIVE LEXISCAN STRESS TEST NORMAL BP RESPONSE TO LEXISCAN NUCLEAR STUDIES TO BE READ SEPARATELY EXAM: Myocardial Perfusion STRESS/REST Imaging Protocol The imaging protocol used to acquire images was Stress Tc-99m/rest Tc-99m 1 day Stress Spect myocardial perfusion imaging was performed in supine position 40 minutes following the injection of 12.9 mCi of Tc-99 Myoview. Gated Rest Spect was performed 41 minutes after intravenous 32.9 mCi Tc-99 Myoview injection. The images were gated to evaluate regional wall motion and calculate ventricular ejection fraction.Images were reconstructed using backfilter projection method in short horizontal and verticle long axis. Spect slices were generated. RESTING DATA EDV77.45csVF9.10L/min ESV23.00mlMyocardial Qqzl415.00g Av. Heart Rate76.00bpm EF70.00% STRESS DATA EDV85.29skUD7.90L/min ESV30.00mlMyocardial Awys595.00g EF65.00% Regional WT score at stress:0.00 Regional WM score at stress:0.00 Summed WT score at stress:1.00 Av. Heart Rate72.00bpmSummed WM score at stress:4.00 LV Perf. Quant 17 Seg. SSS0.00 17 Seg. SRS0.00 17 Seg. SDS0.00 Stress Defect Extent (% LAD)0.00Rest Defect Extent (% LAD)0.00Rev. Defect Extent (% LAD)0.00 Stress Defect Extent (% LCX)0.00Rest Defect Extent (% LCX)0.00Rev. Defect Extent (% LCX)0.00 Stress Defect Extent (% RCA)0.00Rest Defect Extent (% RCA)0.00Rev. Defect Extent (% RCA)0.00 Stress Defect Extent (% VITALIY)0.00Rest Defect Extent (% VITALIY)0.00Rev. Defect Extent (% VITALIY)0.00 IMPRESSION Normal Myocardial Perfusion exercise stress study Left Ventricle LV Size/Shape: The left ventricle is normal size. LV Function:Left ventricle systolic function is normal. The Ejection Fraction is 65-70%. Regional Wall Motion:There is normal left ventricular wall motion. Metabolism/Perfusion Defects: There is no scan evidence of reversible ischemia noted. Conclusion 1. There is no scan evidence of reversible ischemia noted. 2. Left ventricle systolic function is normal. 3. The Ejection Fraction is 65-70%.
[2017-06-23] MEDS ORDERED: Lidocaine 2% Inj (20ml) ONE (07:14)
[2017-06-23 07:32] LABS: BASO # 0.1 K/uL (0.0-0.2); BASO % 0.8 % (0.0-2.0); EOS # 0.3 K/uL (0.0-0.7); EOS % 3.3 % (0.0-4.0); HEMOGLOBIN 13.1 g/dL (11.0-16.0); MEAN CORPUSCULAR HEMOGLOBIN 29.8 pg (27.0-31.0); MEAN CORPUSCULAR HGB CONC 34.6 g/dL (33.0-37.0); MEAN PLATELET VOLUME 10.3 fL (7.2-11.7); MONO # 0.5 K/uL (0.0-0.8); MONO % 5.4 % (0.0-10.0); NEUT # 5.6 K/uL (1.8-7.0); NEUT % 66.5 % (50.0-75.0); NRBC % 0.1 % (0.0-2.0); RBC 4.41 Mil/uL (3.80-5.20); RED CELL DISTRIBUTION WIDTH 13.6 % (11.5-14.5); WHITE BLOOD COUNT 8.5 K/uL (4.8-10.8)
[2017-06-23] MEDS ORDERED: ceFAZolin 1 gm FROZEN Premix 1 GM/50 ML ML IVPB ONE (07:53)
[2017-06-23 08:12] LABS: ALB/GLOB RATIO 1.2 (1.0-2.1); ALBUMIN 3.9 g/dL (3.5-5.0); ALT/SGPT 17 U/L (9-52); AST/SGOT 14 U/L (14-36); BLOOD UREA NITROGEN 16 mg/dL (7-17); CALCIUM 8.4 mg/dl (8.6-10.4); GFR AFRICAN-AMERICAN > 60; GFR NON-AFRICAN AMERICAN > 60; MAGNESIUM 1.8 mg/dL (1.6-2.3)
--- NOTE | 2017-06-23 08:18 | CP.PCM.PN ---
Subjective - Date & Time of Evaluation Date of Evaluation: 06/23/17 Time of Evaluation: 08:14 - Subjective Subjective: PROCEDURE NOTE Proc: Loop recorder implant Indic: Recurrent syncope w/ frequent palpitations Anesthesia: Local Under routine aseptic technique, loop recorder was implanted in the 4th ICS 2cm left of parasternal area. Pt tolerated procedure well. No complications. Ancef 1gm was given before the procedure. PARAMETER R wave 1.25mV Abimael Graves MD Objective - Vital Signs/Intake and Output Vital Signs (last 24 hours): Temp Pulse Resp BP Pulse Ox 98.3 F 78 20 118/79 97 06/22/17 23:20 06/22/17 23:40 06/22/17 23:20 06/22/17 23:20 06/22/17 23:20 - Medications Medications: Current Medications Enoxaparin Sodium (Lovenox) 40 mg SC DAILY [facility] Last Admin: 06/22/17 09:54 Dose: 40 mg Indomethacin (Indocin) 25 mg PO BID [facility] Last Admin: 06/22/17 16:59 Dose: Not Given Lisinopril (Zestril) 10 mg PO DAILY [facility] Last Admin: 06/22/17 09:54 Dose: 10 mg Nitroglycerin (Nitrostat Sl Tab) 0.4 mg SL Q5M PRN PRN Reason: chest pain Last Admin: 06/22/17 19:40 Dose: 0.4 mg - Labs Labs: 06/23/17 07:12 06/23/17 07:12
--- NOTE | 2017-06-23 08:22 | CP.PCM.PN ---
Subjective - Date & Time of Evaluation Date of Evaluation: 06/22/17 Time of Evaluation: 08:00 - Subjective Subjective: Pt w/ recurrent palpitations and chest pain. Occasional syncope Objective - Vital Signs/Intake and Output Vital Signs (last 24 hours): Temp Pulse Resp BP Pulse Ox 98.3 F 78 20 118/79 97 06/22/17 23:20 06/22/17 23:40 06/22/17 23:20 06/22/17 23:20 06/22/17 23:20 - Medications Medications: Current Medications Enoxaparin Sodium (Lovenox) 40 mg SC DAILY [facility] Last Admin: 06/22/17 09:54 Dose: 40 mg Indomethacin (Indocin) 25 mg PO BID [facility] Last Admin: 06/22/17 16:59 Dose: Not Given Lisinopril (Zestril) 10 mg PO DAILY [facility] Last Admin: 06/22/17 09:54 Dose: 10 mg Nitroglycerin (Nitrostat Sl Tab) 0.4 mg SL Q5M PRN PRN Reason: chest pain Last Admin: 06/22/17 19:40 Dose: 0.4 mg - Labs Labs: 06/23/17 07:12 06/23/17 07:12 - Constitutional Appears: Non-toxic - Head Exam Head Exam: NORMAL INSPECTION - Eye Exam Eye Exam: absent: Scleral icterus - ENT Exam ENT Exam: Mucous Membranes Moist - Neck Exam Neck Exam: Full ROM - Respiratory Exam Respiratory Exam: NORMAL BREATHING PATTERN - Cardiovascular Exam Cardiovascular Exam: REGULAR RHYTHM - GI/Abdominal Exam GI & Abdominal Exam: Soft. absent: Tenderness - Extremities Exam Extremities Exam: Calf Tenderness. absent: Pedal Edema - Neurological Exam Neurological Exam: Alert, Awake, Oriented x3 Assessment and Plan - Assessment and Plan (Free Text) Assessment: Recurrent syncope Palpitations - r/o Arrhythmias Migraine Plan: Lexiscan stress test
[2017-06-23] MEDS: Enoxaparin 40 mg Syringe SC SCH (10:22)
--- NOTE | 2017-06-23 12:53 | CP.PCM.PN ---
Subjective - Date & Time of Evaluation Date of Evaluation: 06/23/17 Time of Evaluation: 12:50 - Subjective Subjective: Ms. Reynoso was seen and examined at the bedside. She is alert, oriented in all spheres. She denies any headache, very mild dizziness (s/p loop recorder placement). She has a left anterior chest wall dressing, dry and intact.She denies any blurred vision, numbness, nausea, or vomiting. She further states that she just received xanax few minutes ago which she is feeling the relief. CTA of the head and neck showed unremarkable result. There was no untoward events overnight. Objective - Vital Signs/Intake and Output Vital Signs (last 24 hours): Temp Pulse Resp BP Pulse Ox 98.1 F 72 18 135/91 H 96 06/23/17 10:00 06/23/17 10:00 06/23/17 10:00 06/23/17 10:00 06/23/17 10:00 - Medications Medications: Current Medications Enoxaparin Sodium (Lovenox) 40 mg SC DAILY [facility] Last Admin: 06/23/17 10:22 Dose: 40 mg Indomethacin (Indocin) 25 mg PO BID [facility] Last Admin: 06/23/17 10:22 Dose: Not Given Lisinopril (Zestril) 10 mg PO DAILY [facility] Last Admin: 06/23/17 10:21 Dose: 10 mg Nitroglycerin (Nitrostat Sl Tab) 0.4 mg SL Q5M PRN PRN Reason: chest pain Last Admin: 06/22/17 19:40 Dose: 0.4 mg - Labs Labs: 06/23/17 07:12 06/23/17 07:12 - Constitutional Appears: No Acute Distress - Head Exam Head Exam: NORMAL INSPECTION - Neurological Exam Neurological Exam: Alert, Awake, CN II-XII Intact, Oriented x3 Neuro motor strength exam: Left Upper Extremity: 5, Right Upper Extremity: 5, Left Lower Extremity: 5, Right Lower Extremity: 5 Additional comments: Neurological unchanged from previous examination. Assessment and Plan (1) Syncope Assessment & Plan: Case discussed with Dr. Chavarria, continue all current medical regimen. Recommend for patient to see primary physician for her anxiety. Status: Acute
--- NOTE | 2017-06-23 14:48 | CP.PCM.PN ---
Subjective - Date & Time of Evaluation Date of Evaluation: 06/23/17 Time of Evaluation: 10:00 - Subjective Subjective: alert, oriented in all spheres. She denies any headache, very mild dizziness (s/ p loop recorder placement). She has a left anterior chest wall dressing, dry and intact.She denies any blurred vision, numbness, nausea, or vomiting. Objective - Vital Signs/Intake and Output Vital Signs (last 24 hours): Temp Pulse Resp BP Pulse Ox 98.1 F 72 18 135/91 H 96 06/23/17 10:00 06/23/17 10:00 06/23/17 10:00 06/23/17 10:00 06/23/17 10:00 - Medications Medications: Current Medications Enoxaparin Sodium (Lovenox) 40 mg SC DAILY [facility] Last Admin: 06/23/17 10:22 Dose: 40 mg Indomethacin (Indocin) 25 mg PO BID [facility] Last Admin: 06/23/17 10:22 Dose: Not Given Lisinopril (Zestril) 10 mg PO DAILY [facility] Last Admin: 06/23/17 10:21 Dose: 10 mg Nitroglycerin (Nitrostat Sl Tab) 0.4 mg SL Q5M PRN PRN Reason: chest pain Last Admin: 06/22/17 19:40 Dose: 0.4 mg - Labs Labs: 06/23/17 07:12 06/23/17 07:12 - Constitutional Appears: Non-toxic, Chronically Ill - Head Exam Head Exam: NORMOCEPHALIC - Eye Exam Eye Exam: PERRL - ENT Exam ENT Exam: Mucous Membranes Dry - Neck Exam Neck Exam: absent: Lymphadenopathy - Respiratory Exam Respiratory Exam: Decreased Breath Sounds, Clear to Ausculation Bilateral - Cardiovascular Exam Cardiovascular Exam: REGULAR RHYTHM - GI/Abdominal Exam GI & Abdominal Exam: Distended, Soft - Rectal Exam Rectal Exam: Deferred - Exam Exam: NORMAL INSPECTION - Extremities Exam Extremities Exam: absent: Pedal Edema - Back Exam Back Exam: absent: CVA tenderness (L), CVA tenderness (R) - Neurological Exam Neurological Exam: Alert, Awake, Oriented x3 - Psychiatric Exam Psychiatric exam: Normal Mood - Skin Skin Exam: Dry Assessment and Plan (1) Paroxysmal hemicrania Status: Acute (2) Syncope Status: Acute - Assessment and Plan (Free Text) Assessment: s/p loop recorder placement for recurrent syncope will be followed as out pt by dr rojas
--- NOTE | 2017-06-23 16:12 | CP.PCM.PN ---
Subjective - Date & Time of Evaluation Date of Evaluation: 06/23/17 Time of Evaluation: 16:11 - Subjective Subjective: DISCUSSED D/C PLAN WITH DR. LEWIS. PT HAS BEEN CLEARED BY DR. ANDRES, HOWEVER, PT WAS TOLD BY "SOMEONE" THAT SHE WOULD BE D/C TOMORROW. HAD LOOP RECORDER PLACED WITHOUT ANY PROBLEMS; TOLERATED WELL. OK PER DR. LEWIS TO D/C HOME IN THE MORNING. PT TO F/U WITH DR ANDRES IN THE OFFICE WITHIN 5-7 DAYS. NO FURTHER ORDERS. Objective - Vital Signs/Intake and Output Vital Signs (last 24 hours): Temp Pulse Resp BP Pulse Ox 98.1 F 72 20 122/82 96 06/23/17 10:00 06/23/17 15:59 06/23/17 15:59 06/23/17 15:59 06/23/17 15:59 - Medications Medications: Current Medications Enoxaparin Sodium (Lovenox) 40 mg SC DAILY [facility] Last Admin: 06/23/17 10:22 Dose: 40 mg Indomethacin (Indocin) 25 mg PO BID [facility] Last Admin: 06/23/17 10:22 Dose: Not Given Lisinopril (Zestril) 10 mg PO DAILY [facility] Last Admin: 06/23/17 10:21 Dose: 10 mg Nitroglycerin (Nitrostat Sl Tab) 0.4 mg SL Q5M PRN PRN Reason: chest pain Last Admin: 06/22/17 19:40 Dose: 0.4 mg - Labs Labs: 06/23/17 07:12 06/23/17 07:12
[2017-06-24 01:24] VITALS: O2SAT 95
[2017-06-24 08:48] VITALS: BP 123/85; PULSE 68; RESP 20; TEMP 98
--- NOTE | 2017-06-24 10:35 | CARD ---
APPROVED REPORT EKG Measurement Heart [id number] MD [id number] <Conclusion> Normal sinus rhythm ST & T wave abnormality, consider anterior ischemia Abnormal ECG
== END 2017-06-24 11:42 | disposition home or self-care (01) ==
LOC: C.ER 09:15 → C.9E 11:30 → C.5S 13:40
PROVIDERS: ADMIT Internal Medicine; ATTEND Internal Medicine
DX: R55 Syncope and collapse (principal); G43.909 Migraine, unspecified, not intractable, without status migrainosus; G44.039 Episodic paroxysmal hemicrania, not intractable; I10 Essential (primary) hypertension
CPT/HCPCS: 36415; 70496; 70498; 71045; 78452; 80053; 80061; 82306; 82607; 82948; 83036; 83735; 84100; 84484; 84703; 85025; 93005; 93017; 93306; 99285; A9502; G0378; J0280; J0690; J1650; J2060; J2785; Q9967

== ENCOUNTER 2018-05-02 22:21 | Emergency (ER) | payer BC ==
[2018-05-02 22:22] VITALS: BMI 26.5
[2018-05-02] MEDS ORDERED: Sodium Chloride 0.9% 1,000 ML IV ONE (23:57)
--- NOTE | 2018-05-03 00:10 | C.PDOC ---
History Of Present Illness 47 year old female with PMHx of HTN presents to the ED c/o cough, abdominal pain, nausea, vomit, diarrhea, congestion, chills, body aches for the past 4 days. Patient reports symptoms started after Thanksgiving, patient's 22 month ol d granddaughter was sick with cough and congestion. Patient was her PMD Dr. Graves today who staretd her on levaquin but patient reports symptoms did not improve. Patient denies rash, dyauria, hematuria, back pain, headache, dizziness, recent travel. <Kimberly Rubio - Last Filed: 05/03/18 00:56> case endoresd penidng ct. ct neg for acute pathology. paged pmd to discuss. af ter paging, pt refueses to wait in er for callback. states will return with woresning. states she feels better. asking specifically for dc. advise close outpt fu and reutrn precautions <Eric Marrero - Last Filed: 05/03/18 05:25> History Per: Patient History/Exam Limitations: no limitations Onset/Duration Of Symptoms: Days (4) Current Symptoms Are (Timing): Still Present Location Of Pain/Discomfort: Diffuse Quality Of Discomfort: "Pain" Associated Symptoms: Fever, Nausea, Vomiting, Diarrhea. denies: Urinary Symptoms Alleviating Factors: None Recent travel outside of the [place]: No Additional History Per: Patient Abnormal Vaginal Bleeding: No <Kimberly Rubio - Last Filed: 05/03/18 00:56> <Eric Marrero - Last Filed: 05/03/18 05:25> Time Seen by Provider: 05/02/18 22:48 Chief Complaint (Nursing): Abdominal Pain Past Medical History Reviewed: Historical Data, Nursing Documentation, Vital Signs Vital Signs: Last Vital Signs Temp 97.9 F 05/02/18 22:28 Pulse 94 H 05/02/18 22:28 Resp 16 05/02/18 22:28 BP 157/101 H 05/02/18 22:28 Pulse Ox 97 05/02/18 22:28 - Medical History PMH: Cardia Arrhythmia (irregular heart beat), HTN, Migraine Denies: Depression Surgical History: No Surg Hx - [facility] Procedures IMMOBILIZ/WOUND ATTN NEC (05/06/14) INJECT/INFUSE NEC (05/05/12) Family History: States: [place] (father at age of 65 ), CAD - Social History Hx Tobacco Use: No Hx Alcohol Use: No Hx Substance Use: No - Immunization History Hx Influenza Vaccination: No <Kimberly Rubio - Last Filed: 05/03/18 00:56> Vital Signs: Last Vital Signs Temp 97.9 F 05/02/18 22:28 Pulse 80 05/03/18 02:07 Resp 18 05/03/18 02:07 BP 173/81 H 05/03/18 02:07 Pulse Ox 100 05/03/18 02:07 - [facility] Procedures IMMOBILIZ/WOUND ATTN NEC (05/06/14) INJECT/INFUSE NEC (05/05/12) <Eric Marrero - Last Filed: 05/03/18 05:25> Review Of Systems Constitutional: Positive for: Fever, Chills, Malaise Cardiovascular: Negative for: Chest Pain Respiratory: Positive for: Cough, Shortness of Breath Gastrointestinal: Positive for: Nausea, Vomiting, Abdominal Pain, Diarrhea Genitourinary: Negative for: Dysuria, Hematuria Musculoskeletal: Negative for: Back Pain Skin: Negative for: Rash Neurological: Negative for: Weakness, Numbness, Headache, Dizziness <Kimberly Rubio - Last Filed: 05/03/18 00:56> Physical Exam - Physical Exam Appears: Non-toxic, No Acute Distress, Other (uncomfortable) Skin: Normal Color, Warm, Dry Head: Atraumatic, Normacephalic Eye(s): bilateral: Normal Inspection, PERRL, EOMI Oral Mucosa: Moist Neck: Normal ROM, Supple Chest: Symmetrical Cardiovascular: Rhythm Regular Respiratory: Normal Breath Sounds, No Rales, No Rhonchi, No Wheezing Gastrointestinal/Abdominal: Bowel Sounds (active), Soft, Tenderness (periumbilical, epigastric), No Guarding, No Rebound Back: No CVA Tenderness Extremity: Normal ROM, No Tenderness, No Swelling Neurological/Psych: Oriented x3, Normal Speech, Normal Cognition Gait: Steady <Kimberly Rubio - Last Filed: 05/03/18 00:56> ED Course And Treatment - Laboratory Results Result Diagrams: 05/03/18 00:23 O2 Sat by Pulse Oximetry: 97 (ON RA) Pulse Ox Interpretation: Normal - Radiology CXR: Interpreted by Me, Viewed By Me CXR Interpretation: Yes: No Acute Disease, Other (unchanged from prior). No: Infiltrates <Kimberly Rubio - Last Filed: 05/03/18 00:56> - Laboratory Results Result Diagrams: 05/03/18 00:23 05/03/18 00:47 - CT Scan/US CT abd/pelvis Other Rad Studies (CT/US): Read By Radiologist, Radiology Report Reviewed CT/US Interpretation: CT SCAN OF THE ABDOMEN AND PELVIS WITH CONTRAST. CLINICAL HISTORY: Abdominal pain. TECHNIQUE: Multiple axial and coronal CT images were obtained through the abdomen and pelvis after administration of intravenous contrast material. COMMENTS: The liver is of uniform attenuation without mass or defect. There is no intra or extrahepatic biliary ductal dilatation. The spleen is normal. The gallbladder is within normal limits. The pancreas is of normal contour and attenuation characteristics. There is no evidence of adrenal mass. Mild bilateral fullness of the collecting systems. Both kidneys demonstrate prompt and equal nephrograms. The kidneys are normal in size, shape and configuration. There is no evidence of renal or ureteral mass. No renal or ureteral calculi are identified. There is no hydroureter or hydronephrosis. No evidence for appendicitis. There is no bowel wall thickening. No evidence for small or large bowel obstruction. There is no evidence of abdominal ascites or lymphadenopathy. There is no evidence of intrinsic or extrinsic bladder mass. There is no pelvic ascites or lymphadenopathy. Distended bladder. Images of the lung bases show no evidence of pleural or parenchymal mass. There are no pleural effusions. The bony structures are free of lytic or blastic lesions. IMPRESSION: Distended bladder. Mild bilateral fullness of the collecting systems. No evidence of acute abdominal or pelvic pathology. Thank you for your kind referral of this patient. . Electronically signed on May 03, 2018 3:05:05 AM EST by: Irina Kenney M.D., Certified by [facility], MSK, Neuroradiology <Eric Marrero - Last Filed: 05/03/18 05:25> Medical Decision Making Medical Decision Making: Plan: * Labs * CT abd/pelvis * CXR * Morphine 2 mg IVP * IV fluids * Zofran 4 mg IVP * Urine culture * UA <Kimberly Rubio - Last Filed: 05/03/18 00:56> Medical Decision Making: case endoresd penidng ct. ct neg for acute pathology. pain improeved. attempted to reach pmd to discuss. family and pt decline to wait in er for pmd conversation. asking specifcally for dc. <Eric Marrero - Last Filed: 05/03/18 05:25> Disposition <Kimberly Rubio - Last Filed: 05/03/18 00:56> - Disposition Disposition Time: 03:00 <Eric Marrero - Last Filed: 05/03/18 05:25> - Disposition Disposition: HOME/ ROUTINE Condition: STABLE Additional Instructions: return to er with worsening symptoms or concerns. Prescriptions: Ondansetron ODT [Zofran ODT] 4 mg PO Q8 PRN #20 odt PRN Reason: Nausea/Vomiting Instructions: Acute Abdomen (Belly Pain), Viral Syndrome (DC) Forms: [email or web address] (Ch[place]an) - Clinical Impression Clinical Impression: Abdominal pain, Viral syndrome - Scribe Statement The provider has reviewed the documentation as recorded by the Scribe Jasson Fernández All medical record entries made by the Scribe were at my direction and personally dictated by me. I have reviewed the chart and agree that the record accurately reflects my personal performance of the history, physical exam, medical decision making, and the department course for this patient. I have also personally directed, reviewed, and agree with the discharge instructions and disposition. <Kimberly Rubio - Last Filed: 05/03/18 00:56> Physician Patient Turnover Patient Signed Over To: Eric Marrero Handoff Comments: pending chemistry, CT and dispo <Kimberly Rubio - Last Filed: 05/03/18 00:56>
[2018-05-03] MEDS ORDERED: Morphine 4 MG/ML VIAL ONE (00:23)
[2018-05-03] MEDS ORDERED: Sodium Chloride 0.9% 1,000 ML ONE (00:23)
[2018-05-03 00:45] LABS: SQUAMOUS EPITHIAL 1 /hpf (0-5); URINE BILIRUBIN NEGATIVE (NEGATIVE); URINE BLOOD NEGATIVE (NEGATIVE); URINE CLARITY Clear (Clear); URINE COLOR Yellow (YELLOW); URINE GLUCOSE (UA) NORMAL (Normal); URINE HYALINE CAST 0-2 /lpf (0-2); URINE LEUKOCYTE ESTERASE NEG Leu/uL (Negative); URINE PROTEIN NEGATIVE (NEGATIVE); URINE UROBILINOGEN NORMAL mg/dL (0.2-1.0)
[2018-05-03 00:46] LABS: BASO % 0.4 % (0.0-2.0); EOS # 0.2 K/uL (0.0-0.7); EOS % 2.6 % (0.0-4.0); HEMOGLOBIN 14.6 g/dL (11.0-16.0); LYMPH # 0.9 K/uL (1.0-4.3); LYMPH % 13.2 % (20.0-40.0); MEAN CELL VOLUME 83.9 fL (81.0-99.0); MEAN CORPUSCULAR HEMOGLOBIN 29.6 pg (27.0-31.0); MEAN CORPUSCULAR HGB CONC 35.3 g/dL (33.0-37.0); MEAN PLATELET VOLUME 11.4 fL (7.2-11.7); MONO # 0.5 K/uL (0.0-0.8); MONO % 6.7 % (0.0-10.0); NEUT # 5.5 K/uL (1.8-7.0); NEUT % 77.1 % (50.0-75.0); NRBC % 0.2 % (0.0-2.0); RBC 4.92 Mil/uL (3.80-5.20); RED CELL DISTRIBUTION WIDTH 13.4 % (11.5-14.5); WHITE BLOOD COUNT 7.1 K/uL (4.8-10.8)
[2018-05-03 01:04] LABS: ALB/GLOB RATIO 1.3 (1.0-2.1); ALBUMIN 4.3 g/dL (3.5-5.0); ALT/SGPT 22 U/L (9-52); AST/SGOT 22 U/L (14-36); BLOOD UREA NITROGEN 12 mg/dL (7-17); CALCIUM 8.6 mg/dl (8.6-10.4); GFR NON-AFRICAN AMERICAN > 60; LIPASE 75 U/L (23-300)
[2018-05-03] MEDS ORDERED: Iodixanol 320 MG/ML 100 ML BOTTLE IV ONE (01:44)
[2018-05-03 03:20] VITALS: PULSE 63; RESP 20; TEMP 97.7; O2SAT 99
[2018-05-03 03:33] VITALS: BP 140/90
--- NOTE | 2018-05-03 08:01 | RAD ---
Date of service: 05/03/2018 PROCEDURE: CHEST RADIOGRAPH, 1 VIEW HISTORY: abd pain COMPARISON: None available. FINDINGS: LUNGS: Clear. PLEURA: No pneumothorax or pleural fluid seen. CARDIOVASCULAR: No aortic atherosclerotic calcification present. Interval loop cardiac recorder inserted OSSEOUS STRUCTURES: No significant abnormalities. VISUALIZED UPPER ABDOMEN: Normal. OTHER FINDINGS: None. IMPRESSION: Interval loop cardiac recorder inserted. No acute cardiopulmonary pathology otherwise appreciated
--- NOTE | 2018-05-03 10:22 | CT ---
Date of service: 05/03/2018 PROCEDURE: CT Abdomen and Pelvis with contrast HISTORY: abd pain COMPARISON: None available. TECHNIQUE: Contrast dose: 100 mL Visipaque IV Radiation dose: Total exam DLP = 446.14 mGy-cm. This CT exam was performed using one or more of the following dose reduction techniques: Automated exposure control, adjustment of the mA and/or kV according to patient size, and/or use of iterative reconstruction technique. FINDINGS: LOWER THORAX: No visible consolidation, pleural effusion, or pneumothorax. LIVER: Unremarkable. GALLBLADDER AND BILE DUCTS: Unremarkable. PANCREAS: Unremarkable. SPLEEN: Unremarkable. ADRENALS: Unremarkable. KIDNEYS AND URETERS: The kidneys enhance symmetrically. No hydronephrosis or obstructing calculus identified. VASCULATURE: No aortic aneurysm. No atherosclerotic calcification or mural plaque present. BOWEL: Stomach is nondistended. Lack of oral contrast limits evaluation for bowel pathology. Bowel loops appear within normal limits of caliber without evidence of obstruction. APPENDIX: The appendix appears within normal limits of caliber. No secondary signs of acute appendicitis. PERITONEUM: No significant free fluid. No definite free air. LYMPH NODES: No bulky adenopathy identified. BLADDER: Urinary bladder appears distended, otherwise unremarkable. REPRODUCTIVE: Uterus is present. BONES: No acute osseous abnormality is detected. OTHER FINDINGS: None. IMPRESSION: Mild fullness of bilateral renal collecting systems. Preliminary impression was provided by [employer].
== END 2018-05-03 03:33 | disposition home or self-care (01) ==
LOC: C.ER 22:21
DX: B34.9 Viral infection, unspecified (principal); R10.9 Unspecified abdominal pain; I10 Essential (primary) hypertension
CPT/HCPCS: 71045; 74177; 80053; 81001; 83690; 85025; 87086; 87804; 96374; 96375; 99285; J2270; J2405; J7030; Q9967